=== PATIENT | male | born 1970 | race Caucasian/White ===

== ENCOUNTER 2020-03-10 09:31 | Emergency (ER) | payer SELFPAY ==
[2020-03-10] MEDS ORDERED: FLUORESCEIN SODIUM 1 MG/WRAP ONE (10:17)
[2020-03-10] MEDS ORDERED: TETRACAINE HCL 0.5% 4ML OPTH ONE (10:17)
--- NOTE | 2020-03-10 10:52 | EDPHYS ---
Physician Documentation [facility] Name: Lebron Bonds Age: 49 yrs Sex: Male : 1970 Arrival Date: 03/10/2020 Time: 09:32 Bed 2 Private MD: Rogers Posey HPI: 03/10 10:32 This 49 yrs old Male presents to ER via Ambulatory with complaints of Blurred ray Vision, Eye Pain. 10:32 The patient is experiencing decreased vision, pain. Onset: The symptoms/episode ray began/occurred 3 week(s) ago. Duration: the symptoms are continuous. Aggravated by nothing. Alleviated by nothing. The patient has experienced similar episodes in the past, several times. Historical: - Allergies: 09:42 PENICILLINS; iw - Home Meds: :42 Metoprolol Tartrate Oral [Active]; Lisinopril Oral [Active]; sildenafil oral oral iw [Active]; - PMHx: 09:42 Hypertension; Glaucoma; iw 09:42 CVA; iw - PSHx: 09:42 None; iw - Immunization history:: Adult Immunizations not up to date. - Social history:: Smoking status: Patient denies any tobacco usage or history of. - Family history:: not pertinent. ROS: 10:32 Constitutional: Negative for fever, chills, and weight loss, ENT: Negative for injury, ray pain, and discharge, Neck: Negative for injury, pain, and swelling, Cardiovascular: Negative for chest pain, palpitations, and edema, Respiratory: Negative for shortness of breath, cough, wheezing, and pleuritic chest pain, Abdomen/GI: Negative for abdominal pain, nausea, vomiting, diarrhea, and constipation, Back: Negative for injury and pain, : Negative for injury, bleeding, discharge, and swelling, MS/Extremity: Negative for injury and deformity, Skin: Negative for injury, rash, and discoloration, Neuro: Negative for headache, weakness, numbness, tingling, and seizure, Psych: Negative for depression, anxiety, suicide ideation, homicidal ideation, and hallucinations, Allergy/Immunology: Negative for hives, rash, and allergies, Endocrine: Negative for neck swelling, polydipsia, polyuria, polyphagia, and marked weight changes. 10:32 Eyes: Positive for matting, pain, redness, vision loss. Exam: 10:32 Constitutional: This is a well developed, well nourished patient who is awake, alert, ray and in no acute distress. Head/Face: Normocephalic, atraumatic. ENT: Nares patent. No nasal discharge, no septal abnormalities noted. Tympanic membranes are normal and external auditory canals are clear. Oropharynx with no redness, swelling, or masses, exudates, or evidence of obstruction, uvula midline. Mucous membranes moist. Neck: Trachea midline, no thyromegaly or masses palpated, and no cervical lymphadenopathy. Supple, full range of motion without nuchal rigidity, or vertebral point tenderness. No Meningismus. Chest/axilla: Normal chest wall appearance and motion. Nontender with no deformity. No lesions are appreciated. Cardiovascular: Regular rate and rhythm with a normal S1 and S2. No gallops, murmurs, or rubs. Normal PMI, no JVD. No pulse deficits. Respiratory: Lungs have equal breath sounds bilaterally, clear to auscultation and percussion. No rales, rhonchi or wheezes noted. No increased work of breathing, no retractions or nasal flaring. Abdomen/GI: Soft, non-tender, with normal bowel sounds. No distension or tympany. No guarding or rebound. No evidence of tenderness throughout. Back: No spinal tenderness. No costovertebral tenderness. Full range of motion. Male : Normal genitalia with no discharge or lesions. Skin: Warm, dry with normal turgor. Normal color with no rashes, no lesions, and no evidence of cellulitis. MS/ Extremity: Pulses equal, no cyanosis. Neurovascular intact. Full, normal range of motion. Neuro: Awake and alert, GCS 15, oriented to person, place, time, and situation. Cranial nerves II-XII grossly intact. Motor strength 5/5 in all extremities. Sensory grossly intact. Cerebellar exam normal. Normal gait. Psych: Awake, alert, with orientation to person, place and time. Behavior, mood, and affect are within normal limits. 10:32 Eyes: Periorbital structures: erythema, that is mild, upper and lower lid edema, Pupils: irregularly shaped, in the left eye, Extraocular movements: intact throughout, Conjunctiva: injected, Corneas: no acute changes. 10:48 ENT: IOP 39 MM/HG IN RIGHT, LEFT EYT TO HIGH TO READ X3. [facility] Vital Signs: 09:38 BP 155 / 110; Pulse 51; Resp 16; Temp 98.2; Pulse Ox 99% on R/A; iw 11:50 BP 180 / 128; Pulse 75; Resp 16; Temp 97.8(TE); Pulse Ox 98% on R/A; mh5 [place] Coma Score: 10:48 Eye Response: spontaneous(4). Verbal Response: oriented(5). Motor Response: obeys [facility] commands(6). Total: 15. MDM: 09:48 Patient medically screened. [facility] 10:35 Differential diagnosis: Corneal ulcer of Acute glaucoma in left eye. Data reviewed: [facility] vital signs, nurses notes, lab test result(s), radiologic studies, CT scan. 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 Counseling: I had a detailed discussion with the patient and/or guardian regarding: the historical points, exam findings, and any diagnostic results supporting the discharge/admit diagnosis. 03/10 10:29 Order name: CBC with Diff; Complete Time: 11:59 [facility] 03/10 10:29 Order name: Comprehensive Metabolic Panel; Complete Time: 11:59 [facility] 03/10 10:29 Order name: CT Head Brain wo Cont; Complete Time: 11:59 [facility] Administered Medications: 11:15 Drug: Zofran (Ondansetron) 4 mg Route: IVP; Site: right forearm; em 12:09 Follow up: Response: No adverse reaction em 11:15 Drug: NS 0.9% 1000 ml Route: IV; Rate: 125 ml/hr; Site: right forearm; em 12:38 Follow up: IV Status: Infusion continued upon transfer em 11:17 Drug: morphine 2 mg Route: IVP; Site: right forearm; em 11:25 Not Given (Other Intervention Used): Timolol 0.25 % 1 drops Ophthalmic once em 11:25 Not Given (Other Intervention Used): Alphagan P 0.15 % 1 drops Ophthalmic once em 11:53 Drug: Xalatan 0.005 % 1 drops Route: Ophthalmic; Site: left eye; em 12:35 Follow up: Response: No adverse reaction em 11:56 Drug: prednisoLONE Drops 1 % 1 application Route: Ophthalmic; Site: left eye; em 12:09 Drug: morphine 2 mg Route: IVP; Site: right forearm; iw 12:35 Follow up: Response: No adverse reaction; Marked relief of symptoms; Pain is decreased; em RASS: Alert and Calm (0) 12:29 Drug: acetaZOLAMIDE 500 mg Route: PO; em 12:35 Follow up: Response: No adverse reaction em Disposition: 03/10/20 10:51 Transfer ordered to Other Acute Care Facility. Diagnosis are Ocular pain, left eye, Glaucoma - ACUTE ANGLE CLOSURE. - Reason for transfer: Higher level of care. - Accepting physician is TO [facility]. - Condition is Stable. - Problem is an ongoing problem. - Symptoms have worsened. Signatures: Dispatcher [employer] EDRogers Heath MD MD cha Munoz, Edgar RN RN Charmaine Dunham RN RN Corrections: (The following items were deleted from the chart) 12:37 10:51 03/10/2020 10:51 Transfer ordered to Other Acute Care Facility. Diagnosis is em Ocular pain, left eye; Glaucoma - ACUTE ANGLE CLOSURE. Reason for transfer: Higher level of care. Accepting physician is TO [facility]. Condition is Stable. Problem is an ongoing problem. Symptoms have worsened. ray
--- NOTE | 2020-03-10 10:52 | ER ---
Nurse's Notes [facility] Name: Lebron Bonds Age: 49 yrs Sex: Male : 1970 Arrival Date: 03/10/2020 Time: 09:32 Bed 2 Private MD: Diagnosis: Ocular pain, left eye;Glaucoma-ACUTE ANGLE CLOSURE Presentation: 03/10 09:38 Chief complaint: Patient states: left eye pain for 3-4 years but pain has gotten worse iw over night, has glaucoma in left eye, has swelling, redness to left eye. Coronavirus screen: At this time, the client does not indicate any symptoms associated with coronavirus-19. Ebola Screen: Patient negative for fever greater than or equal to 101.5 degrees Fahrenheit, and additional compatible Ebola Virus Disease symptoms Patient denies exposure to infectious person. Patient denies travel to an Ebola-affected area in the 21 days before illness onset. No symptoms or risks identified at this time. Mechanism of Injury: No Mechanism of Injury. Initial Sepsis Screen: Does the patient meet any 2 criteria? No. Patient's initial sepsis screen is negative. Does the patient have a suspected source of infection? No. Patient's initial sepsis screen is negative. Risk Assessment: Do you want to hurt yourself or someone else? Patient reports no desire to harm self or others. Onset of symptoms was March 09, 2020. 09:38 Method Of Arrival: Ambulatory iw 09:38 Acuity: CRISTIAN 3 iw Triage Assessment: 09:45 General: Appears distressed, comfortable, obese, unkempt, Behavior is cooperative, bp appropriate for age, anxious. 09:45 Pain: Complains of pain in left eye. bp 09:45 EENT: Eyes NO LIGHT PERCEPTION LEFT EYE. Neuro: Level of Consciousness is awake, alert, bp obeys commands, Oriented to person, place, time, situation, Appropriate for age. Cardiovascular: No deficits noted. Respiratory: No deficits noted. GI: No signs and/or symptoms were reported involving the gastrointestinal system. : No signs and/or symptoms were reported regarding the genitourinary system. Derm: No deficits noted. Musculoskeletal: No deficits noted. Historical: - Allergies: 09:42 PENICILLINS; iw - Home Meds: 09:42 Metoprolol Tartrate Oral [Active]; Lisinopril Oral [Active]; sildenafil oral oral iw [Active]; - PMHx: 09:42 Hypertension; Glaucoma; iw 09:42 CVA; iw - PSHx: 09:42 None; iw - Immunization history:: Adult Immunizations not up to date. - Social history:: Smoking status: Patient denies any tobacco usage or history of. - Family history:: not pertinent. Screenin:45 Abuse screen: Denies threats or abuse. Denies injuries from another. Nutritional bp screening: No deficits noted. Tuberculosis screening: No symptoms or risk factors identified. Fall Risk None identified. Assessment: 09:45 General: SEE TRIAGE NOTE. Pain: Complains of pain in left eye. EENT: Eyes LEFT EYE bp FLAVIA-ORBITAL EDEMA. Sclera/Cornea are reddened in left eye. 10:50 Reassessment: PHARMACY CONTACTED FOR ADDITIONAL MEDICATIONS. TRANSFER INITIATED. bp 11:55 Reassessment: reports pain is worse than the beginning, will be medicated with another em 2 mg morphine. 12:28 Reassessment: Patient appears in no apparent distress at this time. Patient and/or em family updated on plan of care and expected duration. Pain level reassessed. Patient is alert, oriented x 3, equal unlabored respirations, skin warm/dry/pink. Patient states feeling better. Patient states symptoms have improved. Vital Signs: 09:38 BP 155 / 110; Pulse 51; Resp 16; Temp 98.2; Pulse Ox 99% on R/A; iw 11:50 BP 180 / 128; Pulse 75; Resp 16; Temp 97.8(TE); Pulse Ox 98% on R/A; mh5 [place] Coma Score: 10:48 Eye Response: spontaneous(4). Verbal Response: oriented(5). Motor Response: obeys ray commands(6). Total: 15. ED Course: 09:32 Patient arrived in ED. as 09:41 Triage completed. iw 09:42 Arm band placed on. iw 09:46 Charmaine Aranda, RN is Primary Nurse. iw 09:48 Rogers Salmeron MD is Attending Physician. ray 10:02 Patient has correct armband on for positive identification. Bed in low position. Call 5 light in reach. Pulse ox on. NIBP on. 10:03 EYE TRAY IN ROOM. [facility] 11:[address] Salmeron with Blanca Mancuso from the [facility]. 11:10 Initial lab(s) drawn, by me, sent to lab. Inserted saline lock: 20 gauge in right em forearm, using aseptic technique. Blood collected. 11:[address] Bucio and Dr. Mascorro the security solutions architect doctors for [facility] with Dr. mitali Salmeron for patient transfer consultation. 11:15 administrative approval given by Ginny Maurer/ patient has been accepted to the [facility] Er/ Dr. Mascorro has accepted the patient in transfer/ report given to Edmundo Villagomez in the ED triage at [facility] by Dr. Salmeron. 11:33 CT Head Brain wo Cont In Process Unspecified. EDMS 11:58 Warm blanket given. mh5 12:32 Patient transferred, IV remains in place. em Administered Medications: 11:15 Drug: Zofran (Ondansetron) 4 mg Route: IVP; Site: right forearm; em 12:09 Follow up: Response: No adverse reaction em 11:15 Drug: NS 0.9% 1000 ml Route: IV; Rate: 125 ml/hr; Site: right forearm; em 12:38 Follow up: IV Status: Infusion continued upon transfer em 11:17 Drug: morphine 2 mg Route: IVP; Site: right forearm; em 11:25 Not Given (Other Intervention Used): Timolol 0.25 % 1 drops Ophthalmic once em 11:25 Not Given (Other Intervention Used): Alphagan P 0.15 % 1 drops Ophthalmic once em 11:53 Drug: Xalatan 0.005 % 1 drops Route: Ophthalmic; Site: left eye; em 12:35 Follow up: Response: No adverse reaction em 11:56 Drug: prednisoLONE Drops 1 % 1 application Route: Ophthalmic; Site: left eye; em 12:09 Drug: morphine 2 mg Route: IVP; Site: right forearm; iw 12:35 Follow up: Response: No adverse reaction; Marked relief of symptoms; Pain is decreased; em RASS: Alert and Calm (0) 12:29 Drug: acetaZOLAMIDE 500 mg Route: PO; em 12:35 Follow up: Response: No adverse reaction em Outcome: 10:51 ER care complete, transfer ordered by . ray 12:32 Transferred by ground EMS Transfer form completed. X-rays sent w/ patient. Note: [facility] 12:32 Condition: stable 12:32 Instructed on the need for admit, Demonstrated understanding of instructions. 12:37 Patient left the ED. em Signatures: Dispatcher [employer] Rogers Hernandez MD MD cha Munoz, Edgar, RN RN Wanda Carmona Irene, Leann Gilliland RN [facility] Trevor Malave RN RN Charlette Durant Corrections: (The following items were deleted from the chart) 10:33 09:38 Acuity: CRISTIAN 4 [facility] 10:59 09:45 Pain: bp bp
[2020-03-10] MEDS ORDERED: ONDANSETRON 4 MG/2 ML VIAL ONE (11:10)
[2020-03-10] MEDS ORDERED: NA CHLORIDE 0.9% 1,000 ML ONE (11:10)
[2020-03-10] MEDS ORDERED: MORPHINE 2 MG/ML SYR ONE ×2 (11:10→12:10)
[2020-03-10] MEDS ORDERED: LATANOPROST 0.005% 2.5ML OPTH OPTH ONE (11:15)
[2020-03-10 11:22] LABS: Absolute Lymphocytes (CBC) 1.7 K/uL (0.7-4.9); Basophils % 0.9 % (0-1.3); Hematocrit 54.1 % (39.6-49.0); Lymphocytes % 15.1 % (15.3-44.8); MPV 10.1 fL (7.6-11.3); RBC Red Blood Cell Count 5.89 M/uL (4.33-5.43)
[2020-03-10] MEDS ORDERED: PREDNISOLONE 1% OPTH SOLN 5ML OPTH ONE (11:30)
[2020-03-10 11:41] LABS: Albumin 3.4 g/dL (3.4-5.0); Bilirubin Total 0.9 mg/dL (0.2-1.0); Protein, Total 7.6 g/dL (6.4-8.2)
--- NOTE | 2020-03-10 11:48 | RAD REPORT ---
EXAM DESCRIPTION: CT - Head Brain Wo Cont - 03/10/2020 11:33 am CLINICAL HISTORY: HEADACHE, left eye blurred vision COMPARISON: No comparisons TECHNIQUE: Axial 5 mm thick images of the head were obtained without IV contrast. All CT scans are performed using dose optimization technique as appropriate and may include automated exposure control or mA/KV adjustment according to patient size. FINDINGS: No intracranial hemorrhage, mass, edema or shift of mid-line structures. No acute cortical based infarction confirmed. Minimal volume loss changes are present. Ventricles are normal in size. Patient has very extensive decreased attenuation throughout the cerebral white matter. Focal areas of diminished attenuation are seen near the left-side genu of the internal capsule as well is along the left external capsule. Diminished attenuation is seen in the lateral aspect of the right thalamus. N o abnormal extra-axial fluid collections. Mastoid air cells are clear. No acute paranasal sinus finding. No acute bony findings. IMPRESSION: No intracranial hemorrhage. No acute infarction changes identified. 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 Acute nonhemorr hagic ischemic change could be easily masked by the severity of chronic disease.
[2020-03-10 12:45] VITALS: BP 180/128; TEMP 97.8; O2SAT 98
[2020-03-10] MEDS ORDERED: acetaZOLAMIDE 250 MG TAB PO ONE (13:00)
== END 2020-03-10 12:37 ==
LOC: ER 09:31
DX: H40.20X0 Unspecified primary angle-closure glaucoma, stage unspecified (principal); I10 Essential (primary) hypertension; Z86.73 Personal history of transient ischemic attack (TIA), and cerebral infarction without residual deficits; Z88.0 Allergy status to penicillin
CPT/HCPCS: 36415; 70450; 80053; 85025; 96361; 96374; 96375; 99285; J2270; J2405; J7030